=== PATIENT | female | born 1965 | race Two or more races ===

== ENCOUNTER 2019-01-25 10:10 | Emergency (ER) | payer OTHER ==
[~2019-01-25] VITALS: Ht 162.6 cm; Wt 47.6 kg
== END 2019-01-25 12:38 | disposition home or self-care (01) ==
LOC: ER 10:10
DX: M62.838 Other muscle spasm (principal)

== ENCOUNTER 2019-02-08 09:06 | Emergency (ER) | payer OTHER ==
[~2019-02-08] VITALS: Ht 162.6 cm; Wt 56.7 kg
== END 2019-02-08 12:54 | disposition home or self-care (01) ==
LOC: ER 09:06
DX: H00.11 Chalazion right upper eyelid (principal)

== ENCOUNTER 2019-04-08 17:20 | Emergency (ER) | payer OTHER ==
[~2019-04-08] VITALS: Ht 162.6 cm; Wt 77.1 kg
== END 2019-04-08 19:04 | disposition home or self-care (01) ==
LOC: ER 17:20
DX: M79.672 Pain in left foot (principal)

== ENCOUNTER 2019-07-02 14:44 | Emergency (ER) | payer OTHER ==
[~2019-07-02] VITALS: Ht 162.6 cm; Wt 47.2 kg
[2019-07-02] MEDS ORDERED: URIN D.S. TABL1 EACH PO (17:47)
== END 2019-07-02 18:04 ==
LOC: ER 14:44 → EDBD 15:15 → ER 15:15
DX: N39.0 Urinary tract infection, site not specified (principal)

== ENCOUNTER 2019-12-14 13:08 | Emergency (ER) | payer OTHER ==
[~2019-12-14] VITALS: Ht 162.6 cm; Wt 47.2 kg
[~2019-12-14 13:08] MED LIST: URIN D.S. TABL1 EACH PO
== END 2019-12-14 16:02 | disposition home or self-care (01) ==
LOC: ER 13:08
DX: R53.81 Other malaise (principal)

== ENCOUNTER 2019-12-24 12:53 | Emergency (ER) | payer OTHER ==
[~2019-12-24] VITALS: Ht 162.6 cm; Wt 47.2 kg
== END 2019-12-24 17:20 | disposition home or self-care (01) ==
LOC: ER 12:53
DX: M54.89 Other dorsalgia (principal)

== ENCOUNTER 2020-01-17 13:11 | Emergency (ER) | payer OTHER ==
[~2020-01-17] VITALS: Ht 162.6 cm; Wt 47.2 kg
== END 2020-01-17 22:37 | disposition home or self-care (01) ==
LOC: ER 13:11
DX: S93.692A Other sprain of left foot, initial encounter (principal); W21.31XA Struck by shoe cleats, initial encounter; Y93.01 Activity, walking, marching and hiking; Y92.89 Other specified places as the place of occurrence of the external cause; Y99.8 Other external cause status

== ENCOUNTER 2020-01-30 10:52 | Emergency (ER) | payer OTHER ==
[~2020-01-30] VITALS: Ht 162.6 cm; Wt 47.2 kg
[2020-01-30] MEDS ORDERED: ULTRACET PO (13:18)
== END 2020-01-30 13:23 | disposition home or self-care (01) ==
LOC: ER 10:52
DX: S96.812A Strain of other specified muscles and tendons at ankle and foot level, left foot, initial encounter (principal); X50.0XXA Overexertion from strenuous movement or load, initial encounter; Y93.89 Activity, other specified; Y92.89 Other specified places as the place of occurrence of the external cause; Y99.8 Other external cause status

== ENCOUNTER 2020-06-17 16:48 | Emergency (ER) | payer OTHER ==
[~2020-06-17] VITALS: Ht 162.6 cm; Wt 50.8 kg
[~2020-06-17 16:48] MED LIST changes: +ULTRACET PO
== END 2020-06-17 19:54 | disposition home or self-care (01) ==
LOC: ER 16:48
DX: S13.4XXA Sprain of ligaments of cervical spine, initial encounter (principal); V49.9XXA Car occupant (driver) (passenger) injured in unspecified traffic accident, initial encounter; Y93.89 Activity, other specified; Y92.488 Other paved roadways as the place of occurrence of the external cause; Y99.8 Other external cause status

== ENCOUNTER 2020-07-16 11:28 | Emergency (ER) | payer OTHER ==
[~2020-07-16] VITALS: Ht 162.6 cm; Wt 50.3 kg
[2020-07-16] MEDS ORDERED: NORFLEX100MG PO ×2 (15:32→15:37)
[2020-07-16] MEDS ORDERED: NASAL MIST126 ML NASAL (15:37)
[2020-07-16] MEDS ORDERED: ULTRAM50 MG PO (15:37)
== END 2020-07-16 15:49 | disposition home or self-care (01) ==
LOC: ER 11:28
DX: M54.2 Cervicalgia (principal)

== ENCOUNTER 2021-02-02 11:03 | Emergency (ER) | payer OTHER ==
[~2021-02-02] VITALS: Ht 162.6 cm; Wt 49.0 kg
[~2021-02-02 11:03] MED LIST changes: +NASAL MIST126 ML NASAL; +NORFLEX100MG PO; +ULTRAM50 MG PO
[2021-02-02] MEDS ORDERED: NORFLEX100MG PO (14:59)
== END 2021-02-02 15:03 | disposition home or self-care (01) ==
LOC: ER 11:03
DX: M54.89 Other dorsalgia (principal)

== ENCOUNTER → 2021-05-13 | Emergency (ER) | payer OTHER ==
[~2021-05-13] VITALS: Ht 162.6 cm; Wt 50.8 kg
== END | disposition home or self-care (01) ==
LOC: ER 19:16
DX: R07.89 Other chest pain (principal); M79.622 Pain in left upper arm; M79.621 Pain in right upper arm

== ENCOUNTER 2021-06-20 16:38 | Emergency (ER) | payer OTHER ==
[~2021-06-20] VITALS: Ht 162.6 cm; Wt 49.4 kg
[2021-06-20] MEDS ORDERED: [UNRECOGNIZED DRUG - OTHER] TOP (19:44)
== END 2021-06-20 19:55 | disposition home or self-care (01) ==
LOC: ER 16:38
DX: L98.8 Other specified disorders of the skin and subcutaneous tissue (principal)

== ENCOUNTER 2021-09-14 11:46 | Emergency (ER) | payer OTHER ==
[~2021-09-14] VITALS: Ht 162.6 cm; Wt 51.3 kg
[~2021-09-14 11:46] MED LIST changes: +[UNRECOGNIZED DRUG - OTHER] TOP
[2021-09-14] MEDS ORDERED: ZITHROMAX TRI-500 MG PO (15:19)
[2021-09-14] MEDS ORDERED: BUTALB-ACETAMI1 EAC2 PO (15:19)
[2021-09-14] MEDS ORDERED: FLONASE ALLERG9.9 ML NASAL (15:19)
== END 2021-09-14 15:21 ==
LOC: ER 11:46
DX: J32.0 Chronic maxillary sinusitis (principal); J06.9 Acute upper respiratory infection, unspecified

== ENCOUNTER 2021-10-26 15:32 | Emergency (ER) | payer OTHER ==
[~2021-10-26] VITALS: Ht 162.6 cm; Wt 49.0 kg
[~2021-10-26 15:32] MED LIST changes: +BUTALB-ACETAMI1 EAC2 PO; +FLONASE ALLERG9.9 ML NASAL; +ZITHROMAX TRI-500 MG PO
[2021-10-26] MEDS ORDERED: DOLOGEN CAPLET1 EACH PO (17:02)
== END 2021-10-26 18:35 | disposition home or self-care (01) ==
LOC: ER 15:32
DX: M79.672 Pain in left foot (principal); M77.32 Calcaneal spur, left foot

== ENCOUNTER 2021-12-25 15:14 | Emergency (ER) | payer OTHER ==
[~2021-12-25] VITALS: Ht 162.6 cm; Wt 49.9 kg
[~2021-12-25 15:14] MED LIST changes: +DOLOGEN CAPLET1 EACH PO
== END 2021-12-25 16:43 | disposition home or self-care (01) ==
LOC: ER 15:14
DX: R60.9 Edema, unspecified (principal)

== ENCOUNTER 2022-04-01 13:58 | Emergency (ER) | payer OTHER ==
[~2022-04-01] VITALS: Ht 160 cm; Wt 49.9 kg
[2022-04-01] MEDS ORDERED: PERCOGESIC EXT1 EACH PO (18:33)
== END 2022-04-01 18:51 | disposition home or self-care (01) ==
LOC: ER 13:58
DX: S93.402A Sprain of unspecified ligament of left ankle, initial encounter (principal); Z88.6 Allergy status to analgesic agent

== ENCOUNTER 2022-05-07 22:25 | Emergency (ER) | payer OTHER ==
[~2022-05-07] VITALS: Ht 160 cm; Wt 48.5 kg
[~2022-05-07 22:25] MED LIST changes: +PERCOGESIC EXT1 EACH PO
[2022-05-08] MEDS ORDERED: MEDROLPACK PO (05:41)
[2022-05-08] MEDS ORDERED: BACTRIM DS TAB1 EACH PO (05:41)
[2022-05-08] MEDS ORDERED: NORFLEX100MG PO (05:41)
[2022-05-08] MEDS ORDERED: ACETAMINOPHEN650 M2 PO (05:41)
== END 2022-05-08 05:58 | disposition home or self-care (01) ==
LOC: ER 22:25
DX: R51.9 Headache, unspecified (principal); S09.93XA Unspecified injury of face, initial encounter; X58.XXXA Exposure to other specified factors, initial encounter; Y93.9 Activity, unspecified; Y92.9 Unspecified place or not applicable; Y99.9 Unspecified external cause status; M54.2 Cervicalgia

== ENCOUNTER 2022-08-16 19:19 | Emergency (ER) | payer OTHER ==
[~2022-08-16] VITALS: Ht 160 cm; Wt 50.8 kg
[~2022-08-16 19:19] MED LIST changes: +ACETAMINOPHEN650 M2 PO; +BACTRIM DS TAB1 EACH PO; +MEDROLPACK PO
[2022-08-16] MEDS ORDERED: AMRIX15 MG PO (20:51)
[2022-08-16] MEDS ORDERED: DECADRON4 MG PO (20:51)
== END 2022-08-16 21:25 | disposition home or self-care (01) ==
LOC: ER 19:19
DX: B34.9 Viral infection, unspecified (principal)

== ENCOUNTER 2022-11-01 22:21 | Emergency (ER) | payer OTHER ==
[~2022-11-01] VITALS: Ht 160 cm; Wt 50.8 kg
[~2022-11-01 22:21] MED LIST changes: +AMRIX15 MG PO; +DECADRON4 MG PO
== END 2022-11-02 03:22 | disposition home or self-care (01) ==
LOC: ER 22:21
DX: B34.9 Viral infection, unspecified (principal); Z88.6 Allergy status to analgesic agent; D69.3 Immune thrombocytopenic purpura

== ENCOUNTER 2022-11-06 13:43 | Emergency (ER) | payer OTHER ==
[~2022-11-06] VITALS: Ht 160 cm; Wt 50.8 kg
[2022-11-06] MEDS ORDERED: MUCINEX D ER 11 EACH PO (18:45)
== END 2022-11-06 20:28 | disposition home or self-care (01) ==
LOC: ER 13:43
DX: B34.9 Viral infection, unspecified (principal); Z88.8 Allergy status to other drugs, medicaments and biological substances; Z20.822 Contact with and (suspected) exposure to COVID-19

== ENCOUNTER 2022-11-12 11:46 | Emergency (ER) | payer OTHER ==
[~2022-11-12] VITALS: Ht 160 cm; Wt 50.8 kg
[~2022-11-12 11:46] MED LIST changes: +MUCINEX D ER 11 EACH PO
[2022-11-12] MEDS ORDERED: AMOX1TAB5 PO (16:49)
== END 2022-11-12 17:13 | disposition home or self-care (01) ==
LOC: ER 11:46
DX: H00.15 Chalazion left lower eyelid (principal)

== ENCOUNTER 2023-02-10 11:29 | Emergency (ER) | payer OTHER ==
[~2023-02-10] VITALS: Ht 160 cm; Wt 50.8 kg
[~2023-02-10 11:29] MED LIST changes: +AMOX1TAB5 PO
== END 2023-02-10 15:18 | disposition home or self-care (01) ==
LOC: ER 11:29
DX: B34.9 Viral infection, unspecified (principal); B97.0 Adenovirus as the cause of diseases classified elsewhere; R53.81 Other malaise; Z88.6 Allergy status to analgesic agent; Z20.822 Contact with and (suspected) exposure to COVID-19